=== PATIENT | female | born 1960 | race American Indian/Alaskan Native ===

== ENCOUNTER 2019-09-21 15:03 | Inpatient (IN) | payer OTHER ==
--- NOTE | 2019-09-21 15:30 | Event Note ---
ED Screening Note Date of service: 09/21/19 ED Screening Note: This initial assessment/diagnostic orders/clinical plan/treatment(s) is/are subject to change based on patients health status, clinical progression and re- assessment by fellow clinical providers in the ED. Further treatment and workup at subsequent clinical providers discretion. Patient/guardian urged not to elope from the ED as their condition may be serious if not clinically assessed and managed. Initial orders include: 59yo BF states that she has abdominal pain and cramps with nausea x 2 days. Pt states that she has LLQ pain.
[2019-09-21 16:24] LABS: Basophils # (Auto) 0.1 K/mm3 (0.0-0.1); Basophils % (Auto) 1.2 % (0.0-1.8); Eosinophils # (Auto) 0.1 K/mm3 (0.0-0.4); Eosinophils % (Auto) 2.2 % (0.0-4.3); Hematocrit 44.1 % (30.3-42.9); Hemoglobin 14.5 gm/dl (10.1-14.3); Lymphocytes # (Auto) 1.5 K/mm3 (1.2-5.4); Lymphocytes % (Auto) 33.9 % (13.4-35.0); Mean Corpuscular HGB Conc 33 % (30-34); Mean Corpuscular Volume 97 fl (79-97); Monocytes # (Auto) 0.6 K/mm3 (0.0-0.8); Monocytes % (Auto) 13.8 % (0.0-7.3); Platelet Count 206 K/mm3 (140-440); Red Blood Count 4.55 M/mm3 (3.65-5.03); Red Cell Distribution Width 12.8 % (13.2-15.2)
[2019-09-21 16:45] LABS: Calcium 9.4 mg/dL (8.4-10.2)
[2019-09-21] MEDS ORDERED: MORPHINE 4 MG/1 ML INJ IV ONE (18:34)
[2019-09-21] MEDS ORDERED: SODIUM CHLORIDE 0.9% 1000 ML 1,000 ML IV ONE ×2 (18:34→18:36)
[2019-09-21] MEDS ORDERED: ACETAMINOPHEN 325 MG TAB PO ONE (18:35)
--- NOTE | 2019-09-21 18:36 | Emergency Department Report ---
ED Abdominal Pain HPI - General Chief Complaint: Abdominal Pain Stated Complaint: ABD CRAMPING Time Seen by Provider: 09/21/19 18:07 Source: patient, RN notes reviewed Mode of arrival: Ambulatory Limitations: No Limitations - History of Present Illness Initial Comments: During the history and physical examination, I am chaperoned by Mr. Timoteo Portillo This is a pleasant 59-year-old female. This patient is not known to this provider previously. She does not have a primary care doctor, reports no chronic medical conditions that she is aware of, denies a history of abdominal surgeries. The patient presents to the ER with a complaint of suprapubic ab dominal pain present for 3 days. The pain is intermittent, and "feels like menstrual cramps." The patient endorses that she is postmenopausal. She denies urinary symptoms. The pain may have migrated to the right lower quadrant, she is not sure. She also describes nontraumatic left-sided aching hip pain. This is intermittent, throbbing, and increases with weightbearing. Does not radiate anywhere. Patient denies headache, neck pain, chest pain, exertional shortness of breath, anorexia, vomiting, diarrhea. MD Complaint: abdominal pain -: Gradual Location: periumbilical Radiation: other Quality: aching, other Consistency: intermittent Improves With: rest Worsens With: movement Associated Symptoms: other - Related Data Allergies Allergy/AdvReac Type Severity Reaction Status Date / Time No Known Allergies Allergy Unverified 09/21/19 15:15 ED Review of Systems ROS: Stated complaint: ABD CRAMPING Other details as noted in HPI Constitutional: denies: fever Eyes: denies: eye discharge ENT: denies: congestion Respiratory: denies: wheezing Cardiovascular: denies: syncope Gastrointestinal: abdominal pain. denies: nausea, vomiting Genitourinary: denies: dysuria Musculoskeletal: arthralgia, myalgia Skin: denies: lesions Hematological/Lymphatic: denies: easy bleeding ED Past Medical Hx - Past Medical History Previous Medical History?: No - Surgical History Past Surgical History?: No - Social History Smoking Status: Current Every Day Smoker Substance Use Type: Alcohol ED Physical Exam - General Limitations: No Limitations General appearance: alert, in no apparent distress - Head Head exam: Present: atraumatic, normocephalic - Eye Eye exam: Present: normal appearance, EOMI. Absent: nystagmus - ENT ENT exam: Present: normal exam, normal orophraynx, mucous membranes moist - Neck Neck exam: Present: normal inspection, full ROM. Absent: tenderness, meningismus - Respiratory Respiratory exam: Present: normal lung sounds bilaterally. Absent: respiratory distress - Cardiovascular Cardiovascular Exam: Present: regular rate, normal rhythm, normal heart sounds. Absent: bradycardia, tachycardia, irregular rhythm, systolic murmur, diastolic murmur, rubs, gallop - GI/Abdominal GI/Abdominal exam: Present: soft, tenderness, guarding, normal bowel sounds, other (patient is tender in the right lower quadrant and right flank. There is voluntary guarding. Is no rebound.). Absent: distended, rebound, rigid, pulsatile mass - Extremities Exam Extremities exam: Present: normal inspection, full ROM, other (2+ pulses noted in the bilateral upper, lower extremities. There is no long bone tenderness. Musculoskeletal compartments are soft. The pelvis is stable.). Absent: pedal edema, joint swelling, calf tenderness - Back Exam Back exam: Present: normal inspection, full ROM. Absent: tenderness, CVA tenderness (R), CVA tenderness (L), paraspinal tenderness, vertebral tenderness - Neurological Exam Neurological exam: Present: alert, oriented X3, normal gait, other (there is no facial droop. The tongue is midline. Extraocular movements are intact bilat erally. Patient speaking in full complete sentences. Shoulder shrug is intact bilaterally. Hearing is grossly intact bilaterally. Visual acuity intact to finger counting and color perception at a close distance. 5/5 strength 4 extremities. Sensation intact to light touch in 4 extremities.). Absent: motor sensory deficit - Psychiatric Psychiatric exam: Present: normal affect, normal mood - Skin Skin exam: Present: warm, dry, intact, normal color. Absent: rash ED Course Vital Signs 09/21/19 09/21/19 09/21/19 15:24 18:45 19:10 Temperature 98.9 F 98.9 F Pulse Rate 80 78 Respiratory 20 18 18 Rate Blood Pressure 177/107 185/110 O2 Sat by Pulse 98 100 Oximetry 09/21/19 19:11 Temperature Pulse Rate Respiratory 18 Rate Blood Pressure O2 Sat by Pulse Oximetry - Reevaluation(s) Reevaluation #1: 09/21/19 19:07 Differential diagnosis, including but not limited to: Appendicitis, renal colic, colitis, diverticulitis, malignancy, perforated viscus, urinary tract infection, pyelonephritis Assessment and plan: 59-year-old female with primary complaint of abdominal pain. She is tender in the suprapubic and right lower quadrant. She is afebrile with reassuring vital signs. She walks with a steady gait. Left hip examination unremarkable, there is no redness, pus or streaking, and has appropriate active and passive range of motion in the left hip. We will obtain CT scan abdomen pelvis, treat her symptoms, obtain additional laboratory studies, EKG, and reassess. Discussed plan of care with patient, who verbalized understanding, and who is amenable to this plan of care. Reevaluation #3: 09/21/19 21:13 Patient found to have metabolic acidosis, decreased CO2. CT scan concerning for necrotic lymph node, colon cancer, metastatic disease, and nonspecific ascending and transverse colitis. Contacted our general surgeon, Dr. Mónica Vickers, and our sessions clerk on-call, Dr. Cortes, who agree with plan for admission, and empiric antibiotic therapy. Both indicate that they will follow the patient in consultation. Discussed CT scan findings and significance with patient, and discuss recommendation for admission for pain control, fluids, antibiotics, and further urgent diagnostic management and evaluation. The patient is amenable to this plan of care. The Hospital physician is paged to arrange admission. Reevaluation #4: 09/21/19 21:58 Dr Toni Galicia accepts to the medical service ED Medical Decision Making - Lab Data Result diagrams: 09/21/19 15:50 09/21/19 15:50 Vital Signs 09/21/19 09/21/19 15:24 18:45 Temperature 98.9 F 98.9 F Pulse Rate 80 78 Respiratory 20 18 Rate Blood Pressure 177/107 185/110 O2 Sat by Pulse 98 100 Oximetry Lab Results 09/21/19 09/21/19 Range/Units 15:50 15:50 WBC 4.5 (4.5-11.0) K/mm3 RBC 4.55 (3.65-5.03) M/mm3 Hgb 14.5 H (10.1-14.3) gm/dl Hct 44.1 H (30.3-42.9) % MCV 97 (79-97) fl MCH 32 (28-32) pg MCHC 33 (30-34) % RDW 12.8 L (13.2-15.2) % Plt Count 206 (140-440) K/mm3 Lymph % (Auto) 33.9 (13.4-35.0) % [place] % (Auto) 13.8 H (0.0-7.3) % Eos % (Auto) 2.2 (0.0-4.3) % Baso % (Auto) 1.2 (0.0-1.8) % Lymph # 1.5 (1.2-5.4) K/mm3 [place] # 0.6 (0.0-0.8) K/mm3 Eos # 0.1 (0.0-0.4) K/mm3 Baso # 0.1 (0.0-0.1) K/mm3 Seg Neutrophils % 48.9 (40.0-70.0) % Seg Neutrophils # 2.2 (1.8-7.7) K/mm3 Sodium 130 L (137-145) mmol/L Potassium 3.8 (3.6-5.0) mmol/L Chloride 92.5 L (98-107) mmol/L Carbon Dioxide 19 L (22-30) mmol/L Anion Gap 22 mmol/L BUN 16 (7-17) mg/dL Creatinine 1.2 (0.7-1.2) mg/dL Estimated GFR 46 ml/min BUN/Creatinine Ratio 13 % Glucose 89 (65-100) mg/dL Calcium 9.4 (8.4-10.2) mg/dL Total Bilirubin 0.40 (0.1-1.2) mg/dL AST 45 H (5-40) units/L ALT 43 (7-56) units/L Alkaline Phosphatase 129 (35-129) units/L Total Protein 7.3 (6.3-8.2) g/dL Albumin 4.0 (3.9-5) g/dL Albumin/Globulin Ratio 1.2 % Lipase 25 (13-60) units/L - EKG Data -: EKG Interpreted by Ga EKG shows normal: sinus rhythm Rate: normal - EKG Data When compared to previous EKG there are: previous EKG unavailable 09/21/19 19:08 There is no prior EKG available for comparison. The EKG shows a sinus rhythm, 62 bpm, there is a normal axis, QTC is 446 ms, there is left ventricular hyp ertrophy, there is atrial enlargement, there is nonspecific ST abnormality, the EKG is abnormal, it is not consistent with a stemi - Radiology Data Radiology results: pending, report reviewed, image reviewed Print Report Referring Physician: CRISTOPHER ALFORD Patient Name: WALLACE HARRISON Date of : 1960 Sex: Female Report Date: 2019-09-21 Report Status: Finalized Findings [facility] [address] [place] [address] Cat Scan Report Signed Patient: WALLACE HARRISON MR#: [id number] : 1960 Acct:[id number] Age/Sex: 59 / F ADM Date: 09/21/19 Loc: ED Attending Dr: Ordering Physician: CRISTOPHER ALFORD MD Date of Service: 09/21/19 Procedure(s): CT abdomen pelvis w con Accession Number(s): [id number] cc: CRISTOPHER ALFORD MD CT ABDOMEN AND PELVIS WITH CONTRAST INDICATION / CLINICAL INFORMATION: rlq pain migratory. TECHNIQUE: Axial CT images were obtained through the abdomen and pelvis after 60 mL Omnipaque [address] scans at this location are performed using CT dose reduction for ALARA by means of automated exposure control. COMPARISON: None available. FINDINGS: LOWER CHEST: Scattered bands of subsegmental atelectasis in the visualized lung bases. LIVER: There are innumerable low-density lesions throughout the liver worrisome for metastases. BILIARY SYSTEM: No significant abnormality. PANCREAS: No significant abnormality. SPLEEN: No significant abnormality. ADRENALS: No significant abnormality. KIDNEYS and URETERS: No significant abnormality. STOMACH / BOWEL: There is suggestion of an apple core type lesion involving the mid ascending colon with an exophytic mass arising from the medial aspect measuring up to approxi mately 2.8 x 1.7 cm (series 2, image 100, and series 601, images 40 through 48). There is mild diffu se wall thickening involving the colon, predominantly the ascending and transverse colon. Multiple prominent loops of small bowel within the lower abdomen and pelvis, but without evidence for obstruction. PERITONEUM: No free fluid. No free air. No fluid collection. LYMPH NODES: There is a centrally necrotic mass, possibly lymph node, anterior to the origin of the right common iliac vasculature measuring up to 3.1 x 2.6 cm (series 2, image 96). VASCULAR STRUCTURES: No significant abnormality. URINARY BLADDER: No significant abnormality. REPRODUCTIVE ORGANS: No significant abnormality. ADDITIONAL FINDINGS: None. SKELETAL SYSTEM: No significant abnormality. IMPRESSION: 1. Findings worrisome for a primary malignancy involving the ascending colon. An enlarged lymph node in the right lower quadrant as well as innumerable hepatic masses are most consistent with metastatic disease. 2. Mild diffuse wall thickening involving the colon, predominantly the transverse colon, may reflect a superimposed infectious or inflammatory colitis. Signer Name: Keyanna Wolff MD Signed: 09/21/2019 8:02 PM Workstation Name: [id number] Transcribed By: [facility] Dictated By: Keyanna Wolff MD Electronically Authenticated By: Keyanna Wolff MD Signed Date/Time: 09/21/192001 Critical care attestation.: If time is entered above; I have spent that time in minutes in the direct care of this critically ill patient, excluding procedure time. ED Disposition Clinical Impression: Abdominal pain, Colonic mass, Lesion of liver, Metabolic acidosis Disposition: 09 OP ADMIT IP TO THIS HOSP Is pt being admited?: Yes Does the pt Need Aspirin: Yes Condition: Good Instructions: Abdominal Pain (ED) Referrals: PRIMARY CAREMD [Primary Care Provider] - 3-5 Days
--- NOTE | 2019-09-21 20:07 | Cat Scan Report ---
CT ABDOMEN AND PELVIS WITH CONTRAST INDICATION / CLINICAL INFORMATION: rlq pain migratory. TECHNIQUE: Axial CT images were obtained through the abdomen and pelvis after 60 mL Omnipaque [address] scans at this location are performed using CT dose reduction for ALARA by means of automated e xposure control. COMPARISON: None available. FINDINGS: LOWER CHEST: Scattered bands of subsegmental atelectasis in the visualized lung bases. LIVER: There are innumerable low-density lesions throughout the liver worrisome for metastases. BILIARY SYSTEM: No significant abnormality. PANCREAS: No significant abnormality. SPLEEN: No significant abnormality. ADRENALS: No significant abnormality. KIDNEYS and URETERS: No significant abnormality. STOMACH / BOWEL: There is suggestion of an apple core type lesion involving the mid ascending colon w ith an exophytic mass arising from the medial aspect measuring up to approximately 2.8 x 1.7 cm (seri es 2, image 100, and series 601, images 40 through 48). There is mild diffuse wall thickening involvi ng the colon, predominantly the ascending and transverse colon. Multiple prominent loops of small bow el within the lower abdomen and pelvis, but without evidence for obstruction. PERITONEUM: No free fluid. No free air. No fluid collection. LYMPH NODES: There is a centrally necrotic mass, possibly lymph node, anterior to the origin of the r ight common iliac vasculature measuring up to 3.1 x 2.6 cm (series 2, image 96). VASCULAR STRUCTURES: No significant abnormality. URINARY BLADDER: No significant abnormality. REPRODUCTIVE ORGANS: No significant abnormality. ADDITIONAL FINDINGS: None. SKELETAL SYSTEM: No significant abnormality. IMPRESSION: 1. Findings worrisome for a primary malignancy involving the ascending colon. An enlarged lymph node in the right lower quadrant as well as innumerable hepatic masses are most consistent with metastatic disease. 2. Mild diffuse wall thickening involving the colon, predominantly the transverse colon, may reflect a superimposed infectious or inflammatory colitis. Signer Name: Keyanna Wolff MD Signed: 09/21/2019 8:02 PM Workstation Name: [id number]
[2019-09-21] MEDS ORDERED: levoFLOXacin 500 MG TAB PO ONE (20:49)
[2019-09-21] MEDS ORDERED: metroNIDAZOLE 500 MG TAB PO ONE (20:49)
[2019-09-21] MEDS ORDERED: ONDANSETRON 4 MG/2 ML INJ IV PRN (21:59)
[2019-09-21] MEDS ORDERED: ACETAMINOPHEN 325 MG TAB PO PRN (21:59)
[2019-09-21] MEDS ORDERED: SODIUM CHLORIDE 0.9% 1000 ML 1,000 ML IV SCH (22:00)
--- NOTE | 2019-09-21 22:03 | History and Physical Report ---
History of Present Illness Chief complaint: My stomach hurts, I cant eat History of present illness: 59 YO Female with NO PMH presents to ED for evaluation. Pt states that she has experienced abdominal pain over the past 3 days. Pt states that pain is 6-8/10, diffuse with migration to the right side, intermittent, throbbing in nature, worsened with movement and weight bearing. Pt acknowledges 15 lbs weight loss over the past 2-3 weeks. Pt transported to [facility] via private vehicle. Pt seen and evaluated in ED and found to have conon mass suspicious for colon cancer, Hyponatremia, and acidosis. Pt placed in Observation status and admitted to medical floor. GI consulted in ED. Surgery team consulted in ED. PT denies fever, chills, CP, Palpitations, Trauma, BRBPR, Change in stool size/caliber/color. No prior admission for review. No medication listed at time of admission for reconciliation. Past History Past Medical History: No medical history, other (reviewed) Past Surgical History: No surgical history, Other (reviewed) Social history: single. denies: smoking, alcohol abuse, prescription drug abuse Family history: no significant family history, other (reviewed) Medications and Allergies Allergies Allergy/AdvReac Type Severity Reaction Status Date / Time No Known Allergies Allergy Unverified 09/21/19 15:15 Review of Systems Constitutional: weight loss, no weight gain, no fever, no chills Ears, nose, mouth and throat: no ear pain, no ear discharge, no decreased hearing, no nose pain, no nasal congestion, no nasal discharge Breasts: no change in shape, no swelling, no mass Cardiovascular: no chest pain, no palpitations, no edema, no syncope Respiratory: no cough, no cough with sputum, no hemoptysis, no shortness of breath Gastrointestinal: abdominal pain, no constipation, no change in bowel habits, no hematemesis, no BRBPR, no melena Genitourinary Female: no pelvic pain, no flank pain, no menorrhagia, no dysuria, no urinary frequency, no urgency Rectal: no pain, no incontinence, no bleeding Musculoskeletal: no neck stiffness, no neck pain, no shooting arm pain, no arm numbness/tingling, no low back pain Integumentary: no rash, no pruritis, no redness, no sores, no wounds Neurological: no parathesias, no numbness, no tingling, no seizures, no syncope, no ataxia Psychiatric: no anxiety, no memory loss, no change in sleep habits, no sleep disturbances, no insomnia, no change in appetite, no change in libido Endocrine: no cold intolerance, no heat intolerance, no polyphagia, no excessive thirst, no polydipsia, no polyuria, no nocturia Hematologic/Lymphatic: no easy bruising, no easy bleeding, no lymphadenopathy, no lymphedema Allergic/Immunologic: no urticaria, no allergic rhinitis, no wheezing, no persistent infections, no angioedema Exam - Constitutional Vitals: Temp Pulse Resp BP Pulse Ox 98.9 F 78 18 185/110 100 09/21/19 18:45 09/21/19 18:45 09/21/19 19:11 09/21/19 18:45 09/21/19 18:45 General appearance: Present: mild distress, cachectic - EENT Eyes: Present: PERRL ENT: hearing intact, clear oral mucosa - Neck Neck: Present: supple, normal ROM - Respiratory Respiratory effort: normal Respiratory: bilateral: CTA - Cardiovascular Heart Sounds: Present: S1 & S2. Absent: rub, click - Extremities Extremities: pulses symmetrical, No edema Peripheral Pulses: within normal limits - Abdominal General gastrointestinal: Present: soft, non-tender, non-distended, normal bowel sounds Female genitourinary: Present: normal - Integumentary Integumentary: Present: clear, warm, dry - Musculoskeletal Musculoskeletal: gait normal, strength equal bilaterally - Psychiatric Psychiatric: appropriate mood/affect, intact judgment & insight - Neurologic Neurologic: CNII-XII intact, moves all extremities Results - Labs CBC & Chem 7: 09/21/19 15:50 09/21/19 15:50 Labs: Abnormal lab results 09/21/19 09/21/19 09/21/19 Range/Units 15:50 15:50 19:26 Hgb 14.5 H (10.1-14.3) gm/dl Hct 44.1 H (30.3-42.9) % RDW 12.8 L (13.2-15.2) % [place] % (Auto) 13.8 H (0.0-7.3) % Sodium 130 L (137-145) mmol/L Chloride 92.5 L (98-107) mmol/L Carbon Dioxide 19 L (22-30) mmol/L AST 45 H (5-40) units/L Total Creatine Kinase 428 H (30-135) units/L Assessment and Plan - Patient Problems (1) Colonic mass Current Visit: Yes Status: Acute Plan to address problem: CT Abdomen/Pelvis, bowel rest, IVF resuscitation therapy, GI consulted in ED, Surgery consulted in ED. (2) Hyponatremia syndrome Current Visit: Yes Status: Acute Plan to address problem: IVF resuscitation therapy, repeat bmp. (3) Metabolic acidosis Current Visit: Yes Status: Acute Plan to address problem: IVF resuscitation therapy, supportive care, repeat bmp in Am (4) DVT prophylaxis Current Visit: Yes Status: Acute Plan to address problem: SCD to BLE while in bed, Pt ambulatory
[2019-09-22] MEDS ORDERED: MORPHINE 2 MG/1 ML INJ IV PRN (03:01)
--- NOTE | 2019-09-22 03:03 | Event Note ---
Date: 09/22/19 Nurse notified of Elevated BP. Patient reports hx of hypertension but not on any medications. BP meds ordered, oncology consult placed due to imaging findings. pain meds also
[2019-09-22] MEDS ORDERED: hydrALAZINE 20 MG/1 ML INJ IV PRN ×2 (04:00)
[2019-09-22] MEDS ORDERED: hydroCHLOROthiazide 25 MG TAB PO SCH (10:00)
--- NOTE | 2019-09-22 10:24 | Progress Note ---
Assessment and Plan Assessment and plan: (Colonic mass CT Abdomen/Pelvis, bowel rest, IVF resuscitation therapy, GI consulted Surgery consulted in ED. Hyponatremia syndrome IVF resuscitation therapy, RepeatBMP in am. Metabolic acidosis IVF resuscitation therapy, supportive care, repeat bmp in Am DVT prophylaxis SCD to BLE while in bed, Pt ambulatory History Interval history: Abdominal pain Weight loss Hospitalist Physical - Physical exam Narrative exam: Gen: Not in acute distress, lying in bed, HEENT: Normocephalic, atraumatic Neck: supple, no JVD Heart: S1 and S2 reg, no murmurs, rubs or gallop Lungs: Clear to auscultation, Abd: soft, tender, non distended, normal BS, Ext: No edema, no clubbing, no cyanosis Neuro: Awake, alert, oriented X 3, normal speech. moves all ext - Constitutional Vitals: Temp Pulse Resp BP Pulse Ox 98.8 F 62 16 166/87 99 09/22/19 04:59 09/22/19 05:32 09/22/19 04:59 09/22/19 05:32 09/22/19 04:59 Results - Labs CBC & Chem 7: 09/23/19 06:21 09/23/19 06:21 Labs: Laboratory Last Values WBC 4.5 K/mm3 (4.5-11.0) 09/21/19 15:50 RBC 4.55 M/mm3 (3.65-5.03) 09/21/19 15:50 Hgb 14.5 gm/dl (10.1-14.3) H 09/21/19 15:50 Hct 44.1 % (30.3-42.9) H 09/21/19 15:50 MCV 97 fl (79-97) 09/21/19 15:50 MCH 32 pg (28-32) 09/21/19 15:50 MCHC 33 % (30-34) 09/21/19 15:50 RDW 12.8 % (13.2-15.2) L 09/21/19 15:50 Plt Count 206 K/mm3 (140-440) 09/21/19 15:50 Lymph % (Auto) 33.9 % (13.4-35.0) 09/21/19 15:50 [place] % (Auto) 13.8 % (0.0-7.3) H 09/21/19 15:50 Eos % (Auto) 2.2 % (0.0-4.3) 09/21/19 15:50 Baso % (Auto) 1.2 % (0.0-1.8) 09/21/19 15:50 Lymph # 1.5 K/mm3 (1.2-5.4) 09/21/19 15:50 [place] # 0.6 K/mm3 (0.0-0.8) 09/21/19 15:50 Eos # 0.1 K/mm3 (0.0-0.4) 09/21/19 15:50 Baso # 0.1 K/mm3 (0.0-0.1) 09/21/19 15:50 Seg Neutrophils % 48.9 % (40.0-70.0) 09/21/19 15:50 Seg Neutrophils # 2.2 K/mm3 (1.8-7.7) 09/21/19 15:50 Sodium 130 mmol/L (137-145) L 09/21/19 15:50 Potassium 3.8 mmol/L (3.6-5.0) 09/21/19 15:50 Chloride 92.5 mmol/L (98-107) L 09/21/19 15:50 Carbon Dioxide 19 mmol/L (22-30) L 09/21/19 15:50 Anion Gap 22 mmol/L 09/21/19 15:50 BUN 16 mg/dL (7-17) 09/21/19 15:50 Creatinine 1.2 mg/dL (0.7-1.2) 09/21/19 15:50 Estimated GFR 46 ml/min 09/21/19 15:50 BUN/Creatinine Ratio 13 % 09/21/19 15:50 Glucose 89 mg/dL (65-100) 09/21/19 15:50 POC Glucose 73 (70-105) 09/22/19 10:24 Lactic Acid 0.70 mmol/L (0.7-2.0) 09/21/19 19:26 Calcium 9.4 mg/dL (8.4-10.2) 09/21/19 15:50 Magnesium 1.80 mg/dL (1.7-2.3) 09/21/19 19:26 Total Bilirubin 0.40 mg/dL (0.1-1.2) 09/21/19 15:50 AST 45 units/L (5-40) H 09/21/19 15:50 ALT 43 units/L (7-56) 09/21/19 15:50 Alkaline Phosphatase 129 units/L (35-129) 09/21/19 15:50 Total Creatine Kinase 428 units/L (30-135) H 09/21/19 19:26 Total Protein 7.3 g/dL (6.3-8.2) 09/21/19 15:50 Albumin 4.0 g/dL (3.9-5) 09/21/19 15:50 Albumin/Globulin Ratio 1.2 % 09/21/19 15:50 Lipase 25 units/L (13-60) 09/21/19 15:50 Active Medications - Current Medications Current Medications: Generic Name Dose Route Start Last Admin Trade Name Freq PRN Reason Stop Dose Admin Acetaminophen 650 mg 09/21/19 21:59 Tylenol PO Q4H PRN Pain MILD(1-3)/Fever >100.5/[place] Clonidine HCl 0.2 mg 09/22/19 12:00 Catapres-Tts Patch TD Sa@1000 [place] Hydralazine HCl 10 mg 09/22/19 04:00 09/22/19 05:32 Apresoline IV 10 mg Q4H PRN Administration GIVE FOR SBP>165 OR/AND DBP>96 Sodium Chloride 1,000 mls @ 125 mls/hr 09/21/19 22:00 09/22/19 03:04 Nacl 0.9% 1000 Ml IV 125 mls/hr DIRECT [place] Administration Morphine Sulfate 2 mg 09/22/19 03:01 Morphine IV Q4H PRN Pain, Moderate (4-6) Ondansetron HCl 4 mg 09/21/19 21:59 Zofran IV Q8H PRN Nausea And Vomiting Sodium Chloride 10 ml 09/21/19 22:00 09/21/19 22:30 Sodium Chloride Flush Syringe 10 Ml IV 10 ml BID [place] Administration Sodium Chloride 10 ml 09/21/19 21:59 Sodium Chloride Flush Syringe 10 Ml IV PRN PRN LINE FLUSH
[2019-09-22] MEDS: D5W/0.9% NACL 1,000 ML IV SCH (10:38)
[2019-09-22] MEDS ORDERED: DEXTROSE 50% IN WATER (25GM) 50 ML SYRINGE IV ONE (10:49)
[2019-09-22] MEDS ORDERED: cloNIDine TTS 0.2 MG/24 HR PATCH TD SCH (12:00)
--- NOTE | 2019-09-22 15:49 | Gastroenterology Consultation ---
History of Present Illness - Reason for Consult Consult date: 09/22/[address] Scan Requesting physician: CRISTOPHER SALTER - History of Present Illness The patient is a 59 yo female admitted with R flank pain. This has been present for about 1-2 weeks, and associated with a 5-15 pound weight loss (decreased appetite). She took laxatives 2 days ago, and had multiple non-bloody BMs, but it did not ease the pain. She came to the ER and a CT scan showed likely Stage IV colon cancer. The patient has no family hx of this, and has not had a screening colonoscopy. Her abdominal pain has improved since admission yesterday. Past History Past Medical History: No medical history Past Surgical History: No surgical history Social history: single. denies: smoking, alcohol abuse, prescription drug abuse Family history: no significant family history Medications and Allergies Allergies Allergy/AdvReac Type Severity Reaction Status Date / Time No Known Allergies Allergy Unverified 09/21/19 15:15 Home Medications Medication Instructions Recorded Confirmed Last Taken Type No Known Home Medications [No 09/22/19 09/22/19 Unknown History Reported Home Medications] Active Meds: Active Medications Acetaminophen (Tylenol) 650 mg PO Q4H PRN PRN Reason: Pain MILD(1-3)/Fever >100.5/[place] Clonidine HCl (Catapres-Tts Patch) 0.2 mg TD Sa@1000 [facility] Last Admin: 09/22/19 12:45 Dose: 0.2 mg Documented by: Hydralazine HCl (Apresoline) 10 mg IV Q4H PRN PRN Reason: GIVE FOR SBP>165 OR/AND DBP>96 Last Admin: 09/22/19 05:32 Dose: 10 mg Documented by: Dextrose/Sodium Chloride (D5ns) 1,000 mls @ 75 mls/hr IV DIRECT [facility] Last Admin: 09/22/19 10:38 Dose: 75 mls/hr Documented by: Morphine Sulfate (Morphine) 2 mg IV Q4H PRN PRN Reason: Pain, Moderate (4-6) Ondansetron HCl (Zofran) 4 mg IV Q8H PRN PRN Reason: Nausea And Vomiting Polyethylene Glycol/Electrolytes (Golytely) 4,000 ml PO ONCE ONE Stop: 09/22/19 16:31 Sodium Chloride (Sodium Chloride Flush Syringe 10 Ml) 10 ml IV BID [facility] Last Admin: 09/22/19 10:39 Dose: 10 ml Documented by: Sodium Chloride (Sodium Chloride Flush Syringe 10 Ml) 10 ml IV PRN PRN PRN Reason: LINE FLUSH I HAVE REVIEWED AND RECONCILED HOME MEDICATIONS Review of Systems - Review of Systems All systems: negative (as noted in the HPI) Exam - Constitutional Vital Signs: Temp Pulse Resp BP Pulse Ox 98.4 F 73 19 175/81 98 09/22/19 10:54 09/22/19 12:45 09/22/19 10:54 09/22/19 12:45 09/22/19 10:54 General appearance: no acute distress - EENT Eyes: PERRL, EOM intact ENT: hearing intact, clear oral mucosa, dentition normal - Neck Neck: supple, normal ROM - Respiratory Respiratory effort: normal Respiratory: bilateral: CTA - Cardiovascular Rhythm: regular Heart Sounds: Present: S1 & S2 Extremities: no ischemia, No edema - Gastrointestinal General gastrointestinal: Present: soft, tender (Minimal tenderness over R liver margin/palpable liver), non-distended - Integumentary Integumentary: Present: clear, warm, dry - Neurologic Neurological: alert and oriented x3 - Labs CBC & Chem 7: 09/21/19 15:50 09/21/19 15:50 Lab Results: Laboratory Results - last 24 hr 09/21/19 09/21/19 09/21/19 15:50 15:50 19:26 WBC 4.5 RBC 4.55 Hgb 14.5 H Hct 44.1 H MCV 97 MCH 32 MCHC 33 RDW 12.8 L Plt Count 206 Lymph % (Auto) 33.9 [place] % (Auto) 13.8 H Eos % (Auto) 2.2 Baso % (Auto) 1.2 Lymph # 1.5 [place] # 0.6 Eos # 0.1 Baso # 0.1 Seg Neutrophils % 48.9 Seg Neutrophils # 2.2 Sodium 130 L Potassium 3.8 Chloride 92.5 L Carbon Dioxide 19 L Anion Gap 22 BUN 16 Creatinine 1.2 Estimated GFR 46 BUN/Creatinine Ratio 13 Glucose 89 POC Glucose Lactic Acid 0.70 Calcium 9.4 Magnesium Total Bilirubin 0.40 AST 45 H ALT 43 Alkaline Phosphatase 129 Total Creatine Kinase Total Protein 7.3 Albumin 4.0 Albumin/Globulin Ratio 1.2 Lipase 25 09/21/19 09/22/19 19:26 10:24 WBC RBC Hgb Hct MCV MCH MCHC RDW Plt Count Lymph % (Auto) [place] % (Auto) Eos % (Auto) Baso % (Auto) Lymph # [place] # Eos # Baso # Seg Neutrophils % Seg Neutrophils # Sodium Potassium Chloride Carbon Dioxide Anion Gap BUN Creatinine Estimated GFR BUN/Creatinine Ratio Glucose POC Glucose 73 Lactic Acid Calcium Magnesium 1.80 Total Bilirubin AST ALT Alkaline Phosphatase Total Creatine Kinase 428 H Total Protein Albumin Albumin/Globulin Ratio Lipase Assessment and Plan - Patient Problems (1) Abnormal CT scan, colon Current Visit: Yes Status: Acute Plan to address problem: - Likely mets colon cancer/Stage IV. - Will plan colonoscopy tomorrow to assess and obtain tissue. - If no primary lesion found, will get liver biopsy Tuesday.
[2019-09-22] MEDS ORDERED: POLYETHYLENE GLYCOL/ELECT SOLN 4000 ML PO ONE (16:30)
[2019-09-22 18:48] LABS: Bacteria,Urine 1+ /HPF (Negative); Bilirubin,Urine NEG (Negative); Blood,Urine NEG (Negative); Color,Urine Yellow (Yellow); Hyaline Casts,Urine 2 /LPF; Mucus,Urine FEW /HPF; Protein,Urine <15 mg/dL mg/dL (Negative); RBC,Urine < 1.0 /HPF (0.0-6.0); Urobilinogen,Urine < 2.0 mg/dL (<2.0); WBC,Urine < 1.0 /HPF (0.0-6.0)
[2019-09-23] MEDS: D5W/0.9% NACL 1,000 ML IV SCH (02:23)
[2019-09-23 06:38] LABS: Hematocrit 44.7 % (30.3-42.9); Hemoglobin 14.5 gm/dl (10.1-14.3); Mean Corpuscular HGB Conc 33 % (30-34); Mean Corpuscular Volume 97 fl (79-97); Platelet Count 219 K/mm3 (140-440); Red Blood Count 4.62 M/mm3 (3.65-5.03); Red Cell Distribution Width 13.3 % (13.2-15.2)
[2019-09-23 06:48] LABS: INR 1.17 (0.87-1.13)
[2019-09-23 07:06] LABS: Alanine Aminotransferase 37 units/L (7-56); Albumin 3.9 g/dL (3.9-5); BUN/Creatinine Ratio 10; Blood Urea Nitrogen 10 mg/dL (7-17); Calcium 9.5 mg/dL (8.4-10.2); Hemolysis Index 6
[2019-09-23] MEDS ORDERED: SODIUM CHLORIDE 0.9% 1000 ML 1,000 ML ONE (12:29)
--- NOTE | 2019-09-23 13:04 | Anesthesia Consultation ---
Anesthesia Consult and Med Hx Date of service: 09/23/19 - Airway Anesthetic Teeth Evaluation: Good ROM Head & Neck: Adequate Mental/Hyoid Distance: Adequate Mallampati Class: Class II Intubation Access Assessment: Probably Good - Pulmonary Exam CTA: Yes - Cardiac Exam Cardiac Exam: RRR - Pre-Operative Health Status ASA Pre-Surgery Classification: ASA2 Proposed Anesthetic Plan: MAC - Pulmonary Hx Smoking: Yes (former smoker) Hx Respiratory Symptoms: No - Cardiovascular System Hx Hypertension: Yes (no meds outpatient; poorly controlled this admission) Hx Heart Attack/AMI: No Hx Percutaneous Transluminal Coronary Angioplasty (PTCA): No Hx Cardia Arrhythmia: No - Central Nervous System CVA: No - Gastrointestinal Hx Gastroesophageal Reflux Disease: No - Endocrine Hx Renal Disease: No Hx Liver Disease: No (possible mets on imaing but no evidence liver dysfunction) Hx Insulin Dependent Diabetes: No Hx Non-Insulin Dependent Diabetes: No Hx Thyroid Disease: No - Hematic Hx Anemia: No - Other Systems Hx Cancer: No (imaging concerning for metastatic colon ca) Hx Obesity: No - Additional Comments Anesthesia Medical History Comments: No prior GA. No known FHx anesthetic complications.
--- NOTE | 2019-09-23 13:04 | Anesthesia Day of Surgery ---
Anesthesia Day of Surgery - Day of Surgery Patient Examined: Yes Patient H&P Reviewed: Yes Patient is NPO: Yes
[2019-09-23] MEDS ORDERED: LIDOCAINE (1%) 10 MG/1 ML VIAL 20 ML MDV ONE (13:13)
[2019-09-23] MEDS ORDERED: PROPOFOL 200 MG/20 ML VIAL IV ONE ×2 (13:13)
--- NOTE | 2019-09-23 13:39 | Post Operative Note ---
Pre-op diagnosis: Colon Mass Post-op diagnosis: other (Abnormal mucosa R colon) Findings: 1. Tortuous colon (?peritoneal mets) 2. Irregular 5cm ulcerated patch of mucosa in mid-ascending colon (TI/cecum not involved) - Cold bx taken - Not entirely consistent with colon malignancy; may be extraluminal mass e roding in to colon 3. Few tics throughout the colon 4. Grade III Int Hemorrhoids Procedure: Colonoscopy with cold bx Anesthesia: MAC Surgeon: RODRICK BOYCE Estimated blood loss: minimal Pathology: list (1. Abnormal mucosa, ascending colon) Specimen disposition: to lab Condition: stable Disposition: floor (Recs: 1. Liver biopsy tomorrow to expedite workup. 2. No signs of obstruction; may have regular diet. 3. Avoid all NSAIDs given ulcerated, friable mucosa in R colon, but may have heparin/lovenox for DVT prophylaxis. 4. Oncology consult.)
--- NOTE | 2019-09-23 14:00 | Post Anesthesia Evaluation ---
- Post Anesthesia Evaluation Patient Participated: Yes Airway Patent: Yes Stable Respiratory Function: Yes Nausea/Vomiting: No Temp > 96.8F: Yes Pain Manageable: Yes Adequeate Hydration: Yes Anesthesia Complications: No
--- NOTE | 2019-09-23 14:01 | Operative Report ---
PROCEDURE PERFORMED: Colonoscopy with cold biopsy. PREOPERATIVE DIAGNOSIS: Abnormal CT scan with possible mass in the right colon. POSTOPERATIVE DIAGNOSIS: Abnormal mucosa in the right colon. ENDOSCOPIST: Tex Cortes MD INSTRUMENT: Olympus video endoscope. MEDICATIONS: MAC anesthesia by [facility]. COMPLICATIONS: No apparent complications. ESTIMATED BLOOD LOSS: Minimal. SPECIMENS: Abnormal mucosa of the right colon. IMPLANTS: None. ASSISTANTS: None. CONDITION AT COMPLETION: Stable. TECHNIQUE: The patient was informed of the risks and benefits of the procedure. She signed the informed consent to proceed. She was placed in left lateral decubitus position. The above sedative medications were given. Her vital signs remained stable throughout the procedure. The instrument was advanced from the anus to the cecum under direct visualization. The cecum was identified by the appendiceal orifice and the ileocecal valve. At that point, the bowel was insufflated and the endoscope was slowly withdrawn. The quality of preparation was good. FINDINGS: 1. Tortuous colon and I questioned whether or not there is peritoneal disease based on the recent CT scan. 2. There was an irregular 5-cm ulcerated friable patch of mucosa in the mid ascending colon; the terminal ileum and cecum were not involved. A. Cold biopsies were taken. B. The patch was not entirely consistent with a colon malignancy and could be a sign of extraluminal mass eroding into the colon. 3. A few scattered diverticula throughout the colon. 4. Grade 3 internal hemorrhoids. RECOMMENDATIONS: 1. Liver biopsy tomorrow to expedite the patient's workup. 2. The patient has no signs of obstruction of the colon and may have a regular diet. 3. Avoid all nonsteroidal anti-inflammatory drugs given ulcerated friable mucosa in the right colon, but the patient may have heparin and/or Lovenox for deep venous thrombosis prophylaxis. 4. Oncology consult. JOB# [id number] ROGER/NTS
--- NOTE | 2019-09-23 14:23 | Consultation ---
History of Present Illness Consult date: 09/23/19 Reason for consult: abdominal pain Requesting physician: ADIA NUÑEZ Chief complaint: abdominal pain - History of present illness History of present illness: 59 YO Female with NO PMH presents to ED for evaluation. Pt states that she has experienced abdominal pain over the past 3 days. Pt states that pain is 6-8/10, diffuse with migration to the right side, intermittent, throbbing in nature, worsened with movement and weight bearing. Pt acknowledges 15 lbs weight loss over the past 2-3 weeks. Shee attributed this to long hours at work and not having time to eat. Has no family history of cancer. Pt seen and evaluated in ED and found to have colon mass suspicious for colon cancer. Gen. surgery consult for evaluation and management. Patient denies any change in appetite, nausea, vomiting. Has no bloody stools or black stools. She does report that bowel movements are less frequent now and softer. pain is better now. Past History Past Medical History: No medical history Past Surgical History: No surgical history Social history: single. denies: smoking (used to smoke 1pk per week for many years), alcohol abuse, prescription drug abuse Family history: no significant family history Medications and Allergies Allergies Allergy/AdvReac Type Severity Reaction Status Date / Time No Known Allergies Allergy Unverified 09/21/19 15:15 Home Medications Medication Instructions Recorded Confirmed Last Taken Type No Known Home Medications [No 09/22/19 09/22/19 Unknown History Reported Home Medications] Active Meds: Active Medications Acetaminophen (Tylenol) 650 mg PO Q4H PRN PRN Reason: Pain MILD(1-3)/Fever >100.5/[place] Clonidine HCl (Catapres-Tts Patch) 0.2 mg TD Sa@1000 [facility] Last Admin: 09/22/19 12:45 Dose: 0.2 mg Documented by: Hydralazine HCl (Apresoline) 10 mg IV Q4H PRN PRN Reason: GIVE FOR SBP>165 OR/AND DBP>96 Last Admin: 09/22/19 05:32 Dose: 10 mg Documented by: Dextrose/Sodium Chloride (D5ns) 1,000 mls @ 75 mls/hr IV DIRECT [facility] Last Admin: 09/23/19 02:23 Dose: 75 mls/hr Documented by: Morphine Sulfate (Morphine) 2 mg IV Q4H PRN PRN Reason: Pain, Moderate (4-6) Ondansetron HCl (Zofran) 4 mg IV Q8H PRN PRN Reason: Nausea And Vomiting Sodium Chloride (Sodium Chloride Flush Syringe 10 Ml) 10 ml IV BID [facility] Last Admin: 09/22/19 21:44 Dose: 10 ml Documented by: Sodium Chloride (Sodium Chloride Flush Syringe 10 Ml) 10 ml IV PRN PRN PRN Reason: LINE FLUSH Review of Systems - Constitutional weight loss, no fever, no chills, no weakness, no chronic pain - Cardiovascular no chest pain, no shortness of breath - Respiratory no cough - Gastrointestinal abdominal pain, change in bowel habits, no nausea, no vomiting, no hematemesis, no coffee ground emesis, no BRBPR, no melena, no hematochezia, no loss of appetite, no dyspepsia/bloating - Muskuloskeletal no low back pain - Integumentary no wounds Exam Vital Signs Temp Pulse Resp BP Pulse Ox 98.9 F 80 20 177/107 98 09/21/19 15:24 09/21/19 15:24 09/21/19 15:24 09/21/19 15:24 09/21/19 15:24 - General physical appearance Positive: no distress, no pain, other (pleasant. Thin woman) - Eyes Positive: deviation (slightly) - Respiratory Positive: normal expansion, normal respiratory effort, clear to auscultation - Cardiovascular Rhythm: regular - Abdomen Abdomen: Present: soft, tender (mildly on right flank), bowel sounds hypoactive, masses (palpable on right side. Also in upper abd, left of midline?). Absent: distended, guarding, rigid, wound, surgical scars - Integumentary no rash, no growths, no abnormal pigmentation - Neurologic Neurologic: alert and oriented to time, place and person, motor strength and sensation are grossly intact - Psychiatric Psychiatric: appropriate mood/affect, intact judgment & insight, cooperative Results - Labs 09/23/19 06:21 09/23/19 06:21 Abnormal lab results 09/22/19 09/23/19 09/23/19 Range/Units 17:48 06:21 06:21 WBC 4.2 L (4.5-11.0) K/mm3 Hgb 14.5 H (10.1-14.3) gm/dl Hct 44.7 H (30.3-42.9) % INR 1.17 H (0.87-1.13) Carbon Dioxide (22-30) mmol/L Glucose (65-100) mg/dL POC Glucose 152 H (70-105) AST (5-40) units/L 09/23/19 Range/Units 06:21 WBC (4.5-11.0) K/mm3 Hgb (10.1-14.3) gm/dl Hct (30.3-42.9) % INR (0.87-1.13) Carbon Dioxide 20 L (22-30) mmol/L Glucose 102 H (65-100) mg/dL POC Glucose (70-105) AST 42 H (5-40) units/L Diabetes panel 09/23/19 Range/Units 06:21 Sodium 140 D (137-145) mmol/L Potassium 4.0 (3.6-5.0) mmol/L Chloride 103.8 (98-107) mmol/L Carbon Dioxide 20 L (22-30) mmol/L BUN 10 (7-17) mg/dL Creatinine 1.0 (0.7-1.2) mg/dL Glucose 102 H (65-100) mg/dL Calcium 9.5 (8.4-10.2) mg/dL AST 42 H (5-40) units/L ALT 37 (7-56) units/L Alkaline Phosphatase 127 (35-129) units/L Total Protein 6.9 (6.3-8.2) g/dL Albumin 3.9 (3.9-5) g/dL Calcium panel 09/23/19 Range/Units 06:21 Calcium 9.5 (8.4-10.2) mg/dL Albumin 3.9 (3.9-5) g/dL Pituitary panel 09/23/19 Range/Units 06:21 Sodium 140 D (137-145) mmol/L Potassium 4.0 (3.6-5.0) mmol/L Chloride 103.8 (98-107) mmol/L Carbon Dioxide 20 L (22-30) mmol/L BUN 10 (7-17) mg/dL Creatinine 1.0 (0.7-1.2) mg/dL Glucose 102 H (65-100) mg/dL Calcium 9.5 (8.4-10.2) mg/dL Adrenal panel 09/23/19 Range/Units 06:21 Sodium 140 D (137-145) mmol/L Potassium 4.0 (3.6-5.0) mmol/L Chloride 103.8 (98-107) mmol/L Carbon Dioxide 20 L (22-30) mmol/L BUN 10 (7-17) mg/dL Creatinine 1.0 (0.7-1.2) mg/dL Glucose 102 H (65-100) mg/dL Calcium 9.5 (8.4-10.2) mg/dL Total Bilirubin 0.40 (0.1-1.2) mg/dL AST 42 H (5-40) units/L ALT 37 (7-56) units/L Alkaline Phosphatase 127 (35-129) units/L Total Protein 6.9 (6.3-8.2) g/dL Albumin 3.9 (3.9-5) g/dL - Imaging CT scan - abdomen: report reviewed, image reviewed CT scan - pelvis: report reviewed, image reviewed Assessment and Plan - Patient Problems (1) Abnormal CT scan, colon Current Visit: Yes Status: Acute Plan to address problem: Pt stable. CT and history are concerning for malignancy. Patient had colonoscopy today. Per Dr. Cortes's report, patient has no evidence of obstruction were near obstruction of the colon. Patient in need of outpatient oncology consultation. No urgent need for surgery at this time. She can follow up with us as needed as an outpatient. We will order a CEA blood test while she is here. We'll follow up on biopsy results. Please call with questions. Time=30min
--- NOTE | 2019-09-23 17:02 | Progress Note ---
Assessment and Plan Assessment and plan: (Colonic mass CT Abdomen/Pelvis, bowel rest, IVF resuscitation therapy, GI consulted Surgery consulted in ED. EGD done today 5cm ulcerted patch For liver biopsy of lesions tomorrow Oncology consulted Hyponatremia syndrome IVF resuscitation therapy, Now resolved Metabolic acidosis IVF resuscitation therapy, supportive care, repeat bmp in Am DVT prophylaxis SCD to BLE while in bed, Pt ambulatory History Interval history: Abdominal pain Weight loss Hospitalist Physical - Physical exam Narrative exam: Gen: Not in acute distress, lying in bed, HEENT: Normocephalic, atraumatic Neck: supple, no JVD Heart: S1 and S2 reg, no murmurs, rubs or gallop Lungs: Clear to auscultation, Abd: soft, tender, non distended, normal BS, Ext: No edema, no clubbing, no cyanosis Neuro: Awake, alert, oriented X 3, normal speech. moves all ext - Constitutional Vitals: Temp Pulse Resp BP Pulse Ox 98.5 F 69 15 166/79 99 09/23/19 14:32 09/23/19 14:32 09/23/19 14:32 09/23/19 14:32 09/23/19 14:32 Results - Labs CBC & Chem 7: 09/23/19 06:21 09/23/19 06:21 Labs: Laboratory Last Values WBC 4.2 K/mm3 (4.5-11.0) L 09/23/19 06:21 RBC 4.62 M/mm3 (3.65-5.03) 09/23/19 06:21 Hgb 14.5 gm/dl (10.1-14.3) H 09/23/19 06:21 Hct 44.7 % (30.3-42.9) H 09/23/19 06:21 MCV 97 fl (79-97) 09/23/19 06:21 MCH 31 pg (28-32) 09/23/19 06:21 MCHC 33 % (30-34) 09/23/19 06:21 RDW 13.3 % (13.2-15.2) 09/23/19 06:21 Plt Count 219 K/mm3 (140-440) 09/23/19 06:21 Lymph % (Auto) 33.9 % (13.4-35.0) 09/21/19 15:50 [place] % (Auto) 13.8 % (0.0-7.3) H 09/21/19 15:50 Eos % (Auto) 2.2 % (0.0-4.3) 09/21/19 15:50 Baso % (Auto) 1.2 % (0.0-1.8) 09/21/19 15:50 Lymph # 1.5 K/mm3 (1.2-5.4) 09/21/19 15:50 [place] # 0.6 K/mm3 (0.0-0.8) 09/21/19 15:50 Eos # 0.1 K/mm3 (0.0-0.4) 09/21/19 15:50 Baso # 0.1 K/mm3 (0.0-0.1) 09/21/19 15:50 Seg Neutrophils % 48.9 % (40.0-70.0) 09/21/19 15:50 Seg Neutrophils # 2.2 K/mm3 (1.8-7.7) 09/21/19 15:50 PT 14.8 Sec. (12.2-14.9) 09/23/19 06:21 INR 1.17 (0.87-1.13) H 09/23/19 06:21 Sodium 140 mmol/L (137-145) D 09/23/19 06:21 Potassium 4.0 mmol/L (3.6-5.0) 09/23/19 06:21 Chloride 103.8 mmol/L (98-107) 09/23/19 06:21 Carbon Dioxide 20 mmol/L (22-30) L 09/23/19 06:21 Anion Gap 20 mmol/L 09/23/19 06:21 BUN 10 mg/dL (7-17) 09/23/19 06:21 Creatinine 1.0 mg/dL (0.7-1.2) 09/23/19 06:21 Estimated GFR > 60 ml/min 09/23/19 06:21 BUN/Creatinine Ratio 10 % 09/23/19 06:21 Glucose 102 mg/dL (65-100) H 09/23/19 06:21 POC Glucose 111 (70-105) H 09/23/19 17:02 Lactic Acid 0.70 mmol/L (0.7-2.0) 09/21/19 19:26 Calcium 9.5 mg/dL (8.4-10.2) 09/23/19 06:21 Magnesium 1.80 mg/dL (1.7-2.3) 09/21/19 19:26 Total Bilirubin 0.40 mg/dL (0.1-1.2) 09/23/19 06:21 AST 42 units/L (5-40) H 09/23/19 06:21 ALT 37 units/L (7-56) 09/23/19 06:21 Alkaline Phosphatase 127 units/L (35-129) 09/23/19 06:21 Total Creatine Kinase 428 units/L (30-135) H 09/21/19 19:26 Total Protein 6.9 g/dL (6.3-8.2) 09/23/19 06:21 Albumin 3.9 g/dL (3.9-5) 09/23/19 06:21 Albumin/Globulin Ratio 1.3 % 09/23/19 06:21 Lipase 25 units/L (13-60) 09/21/19 15:50 Urine Color Yellow (Yellow) 09/22/19 17:20 Urine Turbidity Slightly-cloudy (Clear) 09/22/19 17:20 Urine pH 6.0 (5.0-7.0) 09/22/19 17:20 Ur Specific [place] 1.015 (1.003-1.030) 09/22/19 17:20 Urine Protein <15 mg/dl mg/dL (Negative) 09/22/19 17:20 Urine Glucose (UA) Neg mg/dL (Negative) 09/22/19 17:20 Urine Ketones Tr mg/dL (Negative) 09/22/19 17:20 Urine Blood Neg (Negative) 09/22/19 17:20 Urine Nitrite Neg (Negative) 09/22/19 17:20 Urine Bilirubin Neg (Negative) 09/22/19 17:20 Urine Urobilinogen < 2.0 mg/dL (<2.0) 09/22/19 17:20 Ur Leukocyte Esterase Neg (Negative) 09/22/19 17:20 Urine WBC (Auto) < 1.0 /HPF (0.0-6.0) 09/22/19 17:20 Urine RBC (Auto) < 1.0 /HPF (0.0-6.0) 09/22/19 17:20 U Epithel Cells (Auto) 11.0 /HPF (0-13.0) 09/22/19 17:20 Urine Bacteria (Auto) 1+ /HPF (Negative) 09/22/19 17:20 Hyaline Casts 2 /LPF 09/22/19 17:20 Urine Mucus Few /HPF 09/22/19 17:20 Active Medications - Current Medications Current Medications: Generic Name Dose Route Start Last Admin Trade Name Freq PRN Reason Stop Dose Admin Acetaminophen 650 mg 09/21/19 21:59 Tylenol PO Q4H PRN Pain MILD(1-3)/Fever >100.5/[place] Clonidine HCl 0.2 mg 09/22/19 12:00 09/22/19 12:45 Catapres-Tts Patch TD 0.2 mg Sa@1000 [facility] Administration Hydralazine HCl 10 mg 09/22/19 04:00 09/22/19 05:32 Apresoline IV 10 mg Q4H PRN Administration GIVE FOR SBP>165 OR/AND DBP>96 Dextrose/Sodium Chloride 1,000 mls @ 75 mls/hr 09/22/19 11:00 09/23/19 02:23 D5ns IV 75 mls/hr DIRECT [facility] Administration Sodium Chloride 1,000 mls @ 50 mls/hr 09/23/19 16:00 Nacl 0.9% 1000 Ml IV DIRECT [facility] Morphine Sulfate 2 mg 09/22/19 03:01 Morphine IV Q4H PRN Pain, Moderate (4-6) Ondansetron HCl 4 mg 09/21/19 21:59 Zofran IV Q8H PRN Nausea And Vomiting Sodium Chloride 10 ml 09/21/19 22:00 09/22/19 21:44 Sodium Chloride Flush Syringe 10 Ml IV 10 ml BID [facility] Administration Sodium Chloride 10 ml 09/21/19 21:59 Sodium Chloride Flush Syringe 10 Ml IV PRN PRN LINE FLUSH Nutrition/Malnutrition Assess - Dietary Evaluation Nutrition/Malnutrition Findings: Nutrition Notes Start: 09/22/19 11:15 Freq: Status: Active Protocol: Document 09/22/19 11:15 LM (Rec: 09/22/19 11:34 LM [email or web address]) Nutrition Notes Need for Assessment generated from: crib tender,MST Initial or Follow up Assessment Other Pertinent Diagnosis acidosis, colonic mass Current Diet NPO Labs/Tests Reviewed Pertinent Medications D5ns/NaCl at 75 ml/hr Height 5 ft 6 in Weight 54.2 kg Usual Body Weight 60.2 kg [place] Body Weight (kg) 59.09 BMI 19.3 Weight change and time frame 10% wt loss. Time frame unknown. Weight Status Appropriate Subjective/Other Information RN screen for MST. 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 Pt stated she has appetite now and would like to eat. Pt stated that she has had wt loss but does not know time frame and how much, but said her clothes fit looser. Pt reported her UBW to be between 130-135 lb (60.2 kg). Pt states she is lactose intolerant and would not want ONS with milk. 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 No Is Patient Ambulatory and/or Out of Bed Yes REE-([facility]-ambulatory/OOB) [ [id number] [id number]] Calculation Used for Recommendations [facility] Additional Notes Protein: 65-81g (1.2-1.5) Fluid: 1 ml/kcal Nutrition Intervention Change Diet Order: Diet advancement when medically feasible Goal #1 Diet advancement Anticipated Discharge Needs: Regular diet Follow-Up By: 09/24/19 Additional Comments F/U for diet advancement, intakes, ONS needs
[2019-09-23] MEDS: SODIUM CHLORIDE 0.9% 1000 ML 1,000 ML IV SCH ×2 (22:39→22:41)
--- NOTE | 2019-09-24 08:36 | Event Note ---
Date: 09/[id number]
[2019-09-24] MEDS ORDERED: ONDANSETRON 4 MG/2 ML INJ IV ONE (08:41)
[2019-09-24] MEDS ORDERED: HYDROmorphone 1 MG/1 ML INJ IV ONE ×2 (08:41→10:15)
--- NOTE | 2019-09-24 08:49 | Consultation ---
REFERRING PHYSICIAN: Dr. Torres. REASON FOR CONSULTATION: Colon mass, liver lesion. HISTORY OF PRESENT ILLNESS: I saw the patient, a 59-year-old female in the medical floor. The patient does not have any past medical history. She came to the hospital because of abdominal pain. She has history of loss of weight, about 15 pounds in a few weeks' time. During this admission, Radiology found ascending colon lesion. She had a colonoscopy done by GI. Biopsy has been done. Radiology also shows liver lesions. Surgical team has seen the patient. There is no plan for surgery as there is no obstruction. I have been asked to evaluate the patient for same. CEA has been ordered. The patient denies any history of bleeding per rectum. At this time, no headache, no visual disturbances. No ear discharge. No chest pain, no shortness of breath. History of abdominal pain present. No vomiting. No hematemesis, no hematochezia. PAST SURGICAL HISTORY: Nil significant. PAST SURGICAL HISTORY: Nil. SOCIAL HISTORY: Single, no history of smoking. FAMILY HISTORY: Noncontributory. ALLERGIES: None. PHYSICAL EXAMINATION: VITAL SIGNS: Temperature 98, pulse 57, respirations 20, BP 170/81. HEENT: No pallor, no icterus. NECK: No neck lymph nodes. HEART: S1, S2. LUNGS: Clear to auscultation. ABDOMEN: Soft. Tenderness present. EXTREMITIES: No calf tenderness. NEUROLOGIC: Alert, awake, oriented. LABORATORY DATA: White cell 4.2, hemoglobin 14, MCV 97, platelet 219. Potassium 4, creatinine 1, calcium 9.5, bilirubin 0.4. RADIOLOGY: Abdomen CT shows ascending colon 2.8 cm mass, lymph node is also suspected 3.1 cm, in the liver, there are innumerable low density lesions throughout worrisome for mets. ASSESSMENT: 1. Ascending colon mass. 2. Lymph node. 3. Liver lesions. 4. The patient has had colonoscopy, biopsy was done. Pathology is pending. 5. CEA has been ordered. 6. I discussed with the patient regarding clinical suspicion of stage 4 colon cancer, Surgical team is not planning any surgery. 7. I discussed with her regarding chemotherapy. She wants to wait for pathology. I discussed with her port placement. I discussed about Surgical consultation for same. She wants to wait for same. There is a plan for liver biopsy. I will wait for the pathology and follow the patient. She is not anemic and she does not have history of rectal bleed. We will await for reports and then follow the patient. JOB# [id number] NM/NTS
[2019-09-24] MEDS ORDERED: ONDANSETRON 4 MG/2 ML INJ ONE (09:08)
[2019-09-24] MEDS ORDERED: HYDROmorphone 1 MG/1 ML INJ ONE ×2 (09:09→10:16)
--- NOTE | 2019-09-24 12:59 | Progress Note ---
Assessment and Plan 1. Metastatic malignancy - probable colonic origin, but unclear. Doubt ovarian. Biopsies of colon and liver pending. - Oncology consult appreciated. Subjective Date of service: 09/24/19 Interval history: Pt groggy, after liver biopsy. NO complaints. Son in room. Objective - Constitutional Vitals: Vital Signs - 12hr 09/24/19 09/24/19 09/24/19 05:28 10:04 10:11 Temperature 98.5 F Pulse Rate 57 L Pulse Rate [ 61 65 Intra-Procedure ] Pulse Rate [ Post-Procedure] Respiratory 20 Rate Respiratory 10 L 9 L Rate [Intra- Procedure] Respiratory Rate [Post- Procedure] Blood Pressure 170/81 Blood Pressure 175/82 151/72 [Intra- Procedure] Blood Pressure [Post-Procedure ] O2 Sat by Pulse 99 Oximetry O2 Sat by Pulse 100 100 Oximetry [ Intra-Procedure ] O2 Sat by Pulse Oximetry [Post -Procedure] 09/24/19 09/24/19 09/24/19 10:17 10:21 10:26 Temperature Pulse Rate Pulse Rate [ 66 77 72 Intra-Procedure ] Pulse Rate [ Post-Procedure] Respiratory Rate Respiratory 8 L 9 L 12 Rate [Intra- Procedure] Respiratory Rate [Post- Procedure] Blood Pressure Blood Pressure 143/79 160/84 157/80 [Intra- Procedure] Blood Pressure [Post-Procedure ] O2 Sat by Pulse Oximetry O2 Sat by Pulse 100 100 Oximetry [ Intra-Procedure ] O2 Sat by Pulse Oximetry [Post -Procedure] 09/24/19 09/24/19 09/24/19 10:31 10:41 11:26 Temperature 98.0 F Pulse Rate 72 Pulse Rate [ 80 Intra-Procedure ] Pulse Rate [ 73 Post-Procedure] Respiratory 18 Rate Respiratory 12 Rate [Intra- Procedure] Respiratory 20 Rate [Post- Procedure] Blood Pressure 140/88 Blood Pressure 155/82 [Intra- Procedure] Blood Pressure 159/80 [Post-Procedure ] O2 Sat by Pulse 95 Oximetry O2 Sat by Pulse 100 Oximetry [ Intra-Procedure ] O2 Sat by Pulse 100 Oximetry [Post -Procedure] General appearance: Present: no acute distress - EENT Eyes: PERRL, EOM intact ENT: hearing intact - Respiratory Respiratory effort: normal - Gastrointestinal General gastrointestinal: Present: soft, tender (Mild, in RUQ ) - Labs CBC & Chem 7: 09/23/19 06:21 09/23/19 06:21 Labs: Abnormal lab results 09/23/19 Range/Units 17:02 POC Glucose 111 H (70-105) Medications & Allergies - Medications Allergies/Adverse Reactions: Allergies No Known Allergies Allergy (Unverified 09/21/19 15:15) Home Medications: Home Medications Medication Instructions Recorded Confirmed Last Taken Type No Known Home Medications [No 09/22/19 09/22/19 Unknown History Reported Home Medications] Active Medications: Generic Name Dose Route Start Last Admin Trade Name Komal PRN Reason Stop Dose Admin Acetaminophen 650 mg 09/21/19 21:59 Tylenol PO Q4H PRN Pain MILD(1-3)/Fever >100.5/[place] Clonidine HCl 0.2 mg 09/22/19 12:00 09/22/19 12:45 Catapres-Tts Patch TD 0.2 mg Sa@1000 [place] Administration Hydralazine HCl 10 mg 09/22/19 04:00 09/22/19 05:32 Apresoline IV 10 mg Q4H PRN Administration GIVE FOR SBP>165 OR/AND DBP>96 Dextrose/Sodium Chloride 1,000 mls @ 75 mls/hr 09/22/19 11:00 09/23/19 02:23 D5ns IV 75 mls/hr DIRECT L[place] Administration Sodium Chloride 1,000 mls @ 50 mls/hr 09/23/19 16:00 09/23/19 22:41 Nacl 0.9% 1000 Ml IV 50 mls/hr DIRECT [place] Administration Morphine Sulfate 2 mg 09/22/19 03:01 Morphine IV Q4H PRN Pain, Moderate (4-6) Ondansetron HCl 4 mg 09/21/19 21:59 Zofran IV Q8H PRN Nausea And Vomiting Sodium Chloride 10 ml 09/21/19 22:00 09/24/19 12:27 Sodium Chloride Flush Syringe 10 Ml IV Not Given BID L[place] Sodium Chloride 10 ml 09/21/19 21:59 Sodium Chloride Flush Syringe 10 Ml IV PRN PRN LINE FLUSH
[2019-09-24 13:20] LABS: Hematocrit 42.5 % (30.3-42.9); Hemoglobin 13.8 gm/dl (10.1-14.3); Mean Corpuscular HGB Conc 33 % (30-34); Mean Corpuscular Volume 98 fl (79-97); Platelet Count 207 K/mm3 (140-440); Red Blood Count 4.35 M/mm3 (3.65-5.03)
[2019-09-24 13:43] LABS: BUN/Creatinine Ratio 13; Blood Urea Nitrogen 13 mg/dL (7-17); Calcium 9.1 mg/dL (8.4-10.2); Hemolysis Index 2
--- NOTE | 2019-09-24 14:52 | Discharge Summary ---
Providers - Providers Date of Admission: 09/23/19 12:45 Date of discharge: 09/24/19 Attending physician: JULIET MORRIS 09/21/19 20:52 Consult to Physician [CONS] Urgent Comment: Dr. Brandt spoke with Dr. Boyce @ 2056 Consulting Provider: RODRICK BOYCE Physician Instructions: Reason For Exam: abd pain colonic mass 09/21/19 22:20 Consult to Physician [CONS] Urgent Comment: Consulting Provider: JENNIFER FOY Physician Instructions: Reason For Exam: abd pain colitis, necrotic lymph node 09/22/19 03:01 Consult to Physician [CONS] Routine Comment: Consulting Provider: NGHIA ROCHA Physician Instructions: Reason For Exam: prsumed metastatic disease Primary care physician: SYSTEMS TESTER Hospitalization Condition: Good Pertinent studies: CT abdomen/pelvis: 1. Findings worrisome for a primary malignancy involving the ascending colon. An enlarged lymph node in the right lower quadrant as well as innumerable hepatic masses are most consistent with metastatic disease. 2. Mild diffuse wall thickening involving the colon, predominantly the transverse colon, may reflect a superimposed infectious or inflammatory colitis. Hospital course: The patient is a 59 yo female admitted with R flank pain. This has been present for about 1-2 weeks, and associated with a 5-15 pound weight loss (decreased appetite). She took laxatives 2 days ago, and had multiple non-bloody BMs, but it did not ease the pain. She came to the ER and a CT scan showed likely Stage IV colon cancer. The patient has no family hx of this, and has not had a screening colonoscopy. Her abdominal pain has improved since admission Discharge diagnosis: /Colonic mass Noted on CT Abdomen/Pelvis GI and Surgery consulted in ED. Colonoscopy with cold bx which showed 5cm ulcerted patch of mucosa in mid- ascending colon s/p liver biopsy of lesions today, patient will follow biopsy result with Oncologist Dr Rocha GS recommended no surgery as there was no obstruction, Patient was tolerating diet /Hyponatremia syndrome resolved with IVF resuscitation therapy, /Metabolic acidosis from N/V IVF resuscitation therapy, supportive care, / DVT prophylaxis SCD to BLE while in bed, Pt ambulatory Disposition: DC- TO HOME OR SELFCARE Time spent for discharge: 34 minutes Core Measure Documentation - Palliative Care Palliative Care/ Comfort Measures: Not Applicable - Core Measures Any of the following diagnoses?: none Exam - Constitutional Vitals: Temp Pulse Resp BP Pulse Ox 98.0 F 72 18 140/88 95 09/24/19 11:26 09/24/19 11:26 09/24/19 11:26 09/24/19 11:26 09/24/19 11:26 General appearance: Present: no acute distress, cachectic - EENT Eyes: Present: PERRL ENT: hearing intact, clear oral mucosa - Neck Neck: Present: supple, normal ROM - Respiratory Respiratory effort: normal Respiratory: bilateral: CTA - Cardiovascular Heart Sounds: Present: S1 & S2. Absent: rub, click - Extremities Extremities: pulses symmetrical, No edema Peripheral Pulses: within normal limits - Abdominal General gastrointestinal: Present: soft, non-tender, non-distended, normal bowel sounds - Integumentary Integumentary: Present: clear, warm, dry - Musculoskeletal Musculoskeletal: gait normal, strength equal bilaterally - Psychiatric Psychiatric: appropriate mood/affect, intact judgment & insight - Neurologic Neurologic: CNII-XII intact, moves all extremities Plan Activity: advance as tolerated Weight Bearing Status: Non-Weight Bearing Diet: regular Wound: keep clean and dry Additional Instructions: f/u pending biopsy result Follow up with: MARY MORGAN MD [Primary Care Provider] - 3-5 Days NGHIA ROCHA MD [Staff Physician] - 7 Days
[2019-09-24 16:25] VITALS: BP 152/85
--- NOTE | 2019-09-25 08:50 | Cat Scan Report ---
CT-GUIDED LIVER BIOPSY INDICATION : Liver masses. Right-sided colon mass. COMPARISON: CT abdomen and pelvis performed 09/21/2019 PROCEDURE: The risks (including but not limited to bleeding and infection) and benefits were explain ed to the patient and informed consent was obtained. All CT scans at this location are performed usi ng CT dose reduction for ALARA by means of automated exposure control. A time out procedure was performed. The procedure site was prepped and draped in the usual sterile f ashion and lidocaine was used for local anesthesia. Anxiolysis was accomplished with IV Dilaudid and Zofran. Using CT guidance, a 17-gauge introducer needle was advanced to the leading edge of an approximate 2 cm right hepatic lobe mass. 5 separate 1.3 cm 18-gauge core biopsies were obtained for pathologic paulino lysis. The pathologist was present and deemed the samples adequate. The patient tolerated the procedure well with no complications. IMPRESSION: Successful CT-guided biopsy of a right hepatic lobe mass. Signer Name: Oneil Robert Jr, MD Signed: 09/25/2019 8:46 AM Workstation Name: [id number]
== END 2019-09-24 16:30 | disposition home or self-care (01) | DRG 375 ==
LOC: ED 15:03 → 3A 21:59 → OBSVTOIN 09-23 12:45
PROVIDERS: ADMIT Internal Medicine; ATTEND Internal Medicine
PROC: 0DBK8ZX Excision of Ascending Colon, Via Natural or Artificial Opening Endoscopic, Diagnostic (ICD-10-PCS; 2019-09-23)
PROC: 0FB13ZX Excision of Right Lobe Liver, Percutaneous Approach, Diagnostic (ICD-10-PCS; principal; 2019-09-24)
DX: C18.9 Malignant neoplasm of colon, unspecified (principal); E87.1 Hypo-osmolality and hyponatremia; E87.2 Acidosis; I10 Essential (primary) hypertension; K76.9 Liver disease, unspecified; F17.200 Nicotine dependence, unspecified, uncomplicated; Z72.89 Other problems related to lifestyle
CPT/HCPCS: 36415; 47000; 74177; 77012; 80048; 80053; 81001; 82140; 82378; 82550; 82962; 83690; 83735; 85025; 85027; 85610; 88172; 88173; 88177; 88305; 88307; 88341; 88342; 93005; 93010; 96374; 96375; G0378; J0360; J1170; J2270; J2405; J2704; J7030; J7042; Q9967